=== PATIENT | female | born 1975 | race Caucasian/White ===

== ENCOUNTER 2019-09-15 16:09 | Inpatient (IN) | payer OTHER ==
[~2019-09-15] VITALS: Ht 175.3 cm; Wt 62.4 kg
[2019-09-15] MEDS ORDERED: LORazepam 2 MG/ML, 1ML IVPush ONE (17:30)
[2019-09-15] MEDS ORDERED: ONDANSETRON 2MG/ML, 2ML IVPush ONE (17:30)
[2019-09-15 17:42] LABS: MEAN CORPUSCULAR HGB CONC 33.6 g/dL (32.4-35.8); MEAN CORPUSCULAR VOLUME 98.3 fL (80-100); MEAN PLATELET VOLUME 6.6 fL (7.4-10.4); PLATELET COUNT 216 x10^3/uL (130-400); RED CELL DISTRIBUTION WIDTH 15.1 % (9.6-15.2)
[2019-09-15] MEDS ORDERED: ONDANSETRON 2MG/ML, 2ML ONE (17:53)
[2019-09-15] MEDS ORDERED: LORazepam 2 MG/ML, 1ML ONE (17:53)
[2019-09-15 17:55] LABS: ALANINE AMINOTRANSFERASE 73 U/L (12-78); ALBUMIN 3.9 g/dL (3.4-5.0); ANION GAP 9 mmol/L (5-15); CALCIUM 7.7 mg/dL (8.5-10.1); CHLORIDE 102 mmol/L (98-107); CREATININE 0.74 mg/dL (0.55-1.02)
--- NOTE | 2019-09-15 17:58 | NUR ---
PT RESTING IN GURNEY WITH SEIZURE PRECAUTIONS IN PLACE, PT MEDICATED PER NOV. PT AOX4 BUT STILL TREMULOUS W/NYSTAGMUS, PERRL @5 - SLUGGISH. BAIN WITH GEN WEAKNESS.
[2019-09-15 17:59] LABS: MD YES
[2019-09-15 18:00] LABS: ALKALINE PHOSPHATASE 105 U/L (45-117); BILIRUBIN,TOTAL 0.9 mg/dL (0.2-1.0)
[2019-09-15 18:01] LABS: <PLATELET ESTIMATE> ADEQUATE; <PLT MORPHOLOGY> NORMAL PLT MORPH; <RBC MORPHOLOGY> NORMAL; BAND#(MANUAL) 0.48 x10^3/uL; BANDS%(MANUAL) 3 % (0-7); LYMPH#(MANUAL) 0.97 x10^3/uL (1-3.4); LYMPHS% (MANUAL) 6 % (22-44); MONOS#(MANUAL) 1.29 x10^3/uL (0.3-2.7); MONOS% (MANUAL) 8 % (2-9); SEG#(MANUAL) 13.36 x10^3/uL (1.8-6.8); SEGS% (MANUAL) 83 % (42-75)
[2019-09-15 18:02] LABS: MICROSCOPIC AUTO
[2019-09-15 18:03] LABS: SALICYLATE LEVEL < 1.7 mg/dL (2.8-20.0)
[2019-09-15 18:03] LABS: CULTURE INDICATED? NO
[2019-09-15 18:17] LABS: BENZODIAZEPINE SCREEN, URINE Positive (Negative); METHADONE SCREEN, URINE Negative (Negative)
[2019-09-15 18:21] LABS: AMPHETAMINE SCREEN, URINE Negative (Negative); BARBITURATE SCREEN, URINE Negative (Negative); CANNABINOID SCREEN, URINE Negative (Negative); COCAINE SCREEN, URINE Negative (Negative); OPIATE SCREEN, URINE Negative (Negative)
--- NOTE | 2019-09-15 18:30 | NUR ---
PT TO CT, NOTIFIED OF CONTINUED TREMORS AND EPISODE OF INCONTINENCE.
--- NOTE | 2019-09-15 18:45 | NUR ---
SPOKE WITH PTS EX AND FRIEND SAMANTHA MENJIVAR [phone]. PT DISCHARGED FROM REHAB ABOUT A MONTH AGO. HAS NOT BEEN SOBER SINCE. PER FRIEND HAS BEEN RUNNING AROUND WITHOUT CLOTHES ON AND VERY SEXUALLY PERMISCUIOUS SLEEPING WITH CAB DRIVERS AND RANDOM PERSONS. HAS BEEN DRINKING HEAVILY AND POSSIBLY DOING DRUGS ALTHOUGH UDS FOR US IS NEGATIVE. FAMILY STATES THEY DO NOT KNOW WHY PT IS TAKING ANTIPSYCHOTICS AND HAS NO PSYCH HX. PER FAMILY BOTTLE OF SLEEP AID "WALL SLEEP Z" FULL SUNDAY NOW EMPTY - RISPERDONE - CAN'T FIND BOTTLE, TRANTELLIX - SPILLED, XANAX - 1 BOTTLE HAS 10 OF 0.5MG, OTHER BOTTLE EMPTY. NOTIFIED.
--- NOTE | 2019-09-15 18:55 | NUR ---
ASSUMING CARE OF PT AT THIS TIME. PT RESTING IN BED, NADN. TACHY HR, RAPID BREATHING. ALL RESULTS BACK AT THIS TIME, CHART UP FOR RECHECK
--- NOTE | 2019-09-15 20:03 | NUR ---
DR WILSON AT BEDSIDE TO RECHECK PT AND PLACE ADMIT ORDERS
[2019-09-15] MEDS ORDERED: SODIUM CHLORIDE 0.9% 1,000 ML IV ONE (20:26)
[2019-09-15] MEDS ORDERED: SODIUM CHLORIDE FLUSH 10ML SYR IVF PRN (20:30)
--- NOTE | 2019-09-15 20:34 | NUR ---
DR KNOWLES TO BEDSIDE FOR ADMIT ASSESSMENT
[2019-09-15] MEDS ORDERED: ACETAMINOPHEN 325 MG TABLET PO PRN (21:00)
[2019-09-15] MEDS ORDERED: SODIUM BICARB 8.4%, 50ML SYRINGE IVPush ONE (21:00)
[2019-09-15] MEDS ORDERED: SODIUM BICARBONATE 1 MEQ/ML, 50ML VIAL IVPush ONE (21:00)
[2019-09-15] MEDS ORDERED: SODIUM CHLORIDE 0.9% 1,000ML IVBOLUS ONE (21:00)
[2019-09-15] MEDS ORDERED: ONDANSETRON 2MG/ML, 2ML IVPush PRN (21:00)
[2019-09-15] MEDS ORDERED: SODIUM BICARBONATE 1 MEQ/ML, 50ML VIAL ONE (21:24)
--- NOTE | 2019-09-15 21:34 | NUR ---
REPORT GIVEN TO ERICA RN, PT READY FOR TRANSPORT
[2019-09-15 21:57] VITALS: BP 139/97
[2019-09-16 02:15] VITALS: BP 142/98
[2019-09-16 05:26] LABS: MEAN CORPUSCULAR HEMOGLOBIN 33.9 pg (27.0-34.8); MEAN CORPUSCULAR HGB CONC 34.7 g/dL (32.4-35.8); MEAN CORPUSCULAR VOLUME 97.6 fL (80-100); MEAN PLATELET VOLUME 7.2 fL (7.4-10.4); PLATELET COUNT 199 x10^3/uL (130-400); RED BLOOD COUNT 3.46 x10^6/uL (3.82-5.3)
[2019-09-16 05:28] LABS: ANION GAP 7 mmol/L (5-15); CALCIUM 7.8 mg/dL (8.5-10.1); CHLORIDE 104 mmol/L (98-107)
[2019-09-16 05:59] LABS: BASOPHILS # (AUTO) 0.02 x10^3/uL (0-0.1); BASOPHILS % (AUTO) 0 % (0-1); EOSINOPHILS # (AUTO) 0.01 x10^3/uL (0-0.4); EOSINOPHILS % (AUTO) 0 % (1-7); LYMPHOCYTES % (AUTO) 16 % (22-44); MD SCAN; MONOCYTES # (AUTO) 1.02 x10^3/uL (0.2-0.8); MONOCYTES % (AUTO) 10 % (2-9); NEUTROPHILS # (AUTO) 7.66 x10^3/uL (1.8-6.8); NEUTROPHILS % (AUTO) 74 % (42-75)
[2019-09-16 06:02] LABS: CREATININE 0.76 mg/dL (0.55-1.02)
[2019-09-16 07:12] LABS: CREATINE KINASE, TOTAL 35528 U/L (26-192)
[2019-09-16 07:51] VITALS: BP 134/81
[2019-09-16] MEDS: SODIUM CHLORIDE 0.9% 1,000 ML IV SCH ×2 (12:04→19:55)
[2019-09-16 13:38] VITALS: BP 122/78
[2019-09-16] MEDS ORDERED: POTASSIUM CHLORIDE 20 MEQ TAB.ER.PRT PO ONE (18:30)
[2019-09-16 19:34] VITALS: BP 119/82
[2019-09-17 01:02] VITALS: BP 113/75
[2019-09-17] MEDS: SODIUM CHLORIDE 0.9% 1,000 ML IV SCH (05:09)
[2019-09-17 05:51] LABS: BASOPHILS # (AUTO) 0.02 x10^3/uL (0-0.1); BASOPHILS % (AUTO) 0 % (0-1); EOSINOPHILS # (AUTO) 0.07 x10^3/uL (0-0.4); EOSINOPHILS % (AUTO) 1 % (1-7); LYMPHOCYTES # (AUTO) 1.79 x10^3/uL (1-3.4); LYMPHOCYTES % (AUTO) 23 % (22-44); MD NO; MEAN CORPUSCULAR HEMOGLOBIN 33.5 pg (27.0-34.8); MEAN CORPUSCULAR HGB CONC 33.6 g/dL (32.4-35.8); MEAN CORPUSCULAR VOLUME 99.6 fL (80-100); MEAN PLATELET VOLUME 6.7 fL (7.4-10.4); MONOCYTES # (AUTO) 0.87 x10^3/uL (0.2-0.8); MONOCYTES % (AUTO) 11 % (2-9); NEUTROPHILS % (AUTO) 65 % (42-75); PLATELET COUNT 246 x10^3/uL (130-400)
[2019-09-17 05:57] LABS: ALBUMIN 3.3 g/dL (3.4-5.0); ANION GAP 5 mmol/L (5-15); CALCIUM 7.6 mg/dL (8.5-10.1); CHLORIDE 107 mmol/L (98-107)
[2019-09-17 06:24] LABS: ALANINE AMINOTRANSFERASE 131 U/L (12-78); ALKALINE PHOSPHATASE 94 U/L (45-117); BILIRUBIN,TOTAL 1.1 mg/dL (0.2-1.0); CREATININE 0.72 mg/dL (0.55-1.02); TOTAL PROTEIN 6.2 g/dL (6.4-8.2)
[2019-09-17 06:56] LABS: CREATINE KINASE, TOTAL 16595 U/L (26-192)
[2019-09-17 07:15] VITALS: BP 147/88
== END 2019-09-17 07:34 | disposition left against medical advice (07) | DRG 918 ==
LOC: ED 20:50 → EDIP 21:01 → 5SO 21:46 → 4EST 09-16 21:30
PROVIDERS: ADMIT Internal Medicine; ATTEND Internal Medicine
DX: T44.3X1A Poisoning by other parasympatholytics [anticholinergics and antimuscarinics] and spasmolytics, accidental (unintentional), initial encounter (principal); M62.82 Rhabdomyolysis; T45.0X1A Poisoning by antiallergic and antiemetic drugs, accidental (unintentional), initial encounter; E87.6 Hypokalemia; F41.9 Anxiety disorder, unspecified; G47.00 Insomnia, unspecified; R56.9 Unspecified convulsions; F10.20 Alcohol dependence, uncomplicated; H57.04 Mydriasis; Z98.82 Breast implant status; Z90.710 Acquired absence of both cervix and uterus; Y92.89 Other specified places as the place of occurrence of the external cause
CPT/HCPCS: 36415; 70450; 71045; 80048; 80053; 80307; 81001; 82550; 83735; 84100; 84443; 84703; 85025; 93005; 99291; G0378; J2405; J2060; J7030

== ENCOUNTER 2020-11-21 13:06 | Emergency (ER) | payer SELFPAY ==
[~2020-11-21] VITALS: Ht 172.7 cm; Wt 62.6 kg
--- NOTE | 2020-11-21 13:41 | NUR ---
Pt ambulatory to room from triage without gait disturbance noted and dry heaving into emesis bag as she is walking. Pt changed into gown, placed on bedside monitor, and field tax auditor completed.
--- NOTE | 2020-11-21 13:55 | NUR ---
IV started and labs drawn in anticipation of need for IV meds/fluids after MD exam. Pt also notified of likely needed UA sample when able. Awaiting MD.
--- NOTE | 2020-11-21 14:45 | NUR ---
No MD yet. ER physicians notified of needed MD exam and orders in core ED area with response received.
--- NOTE | 2020-11-21 15:10 | NUR ---
MD at bedside for exam. Awaiting order placement.
--- NOTE | 2020-11-21 15:14 | NUR ---
Pt dry heaving with continued severe abd pain at this time. No orders present as yet.
[2020-11-21] MEDS ORDERED: HALOPERIDOL 5 MG/ML ONE (15:42)
[2020-11-21] MEDS ORDERED: MORPHINE SULFATE 4 MG/ML, 1ML ONE (15:43)
[2020-11-21] MEDS ORDERED: ONDANSETRON 2MG/ML, 2ML ONE (15:43)
--- NOTE | 2020-11-21 15:53 | NUR ---
Medications and IVF given as ordered.
[2020-11-21 16:00] LABS: BASOPHILS % (AUTO) 1 % (0-1); EOSINOPHILS % (AUTO) 0 % (1-7); LYMPHOCYTES % (AUTO) 15 % (22-44); MEAN CORPUSCULAR HGB CONC 34.6 g/dL (32.4-35.8); MEAN PLATELET VOLUME 8.1 fL (7.4-10.4); MONOCYTES % (AUTO) 16 % (2-9); NEUTROPHILS % (AUTO) 68 % (42-75); PLATELET COUNT 306 x10^3/uL (130-400); RED BLOOD COUNT 4.18 x10^6/uL (3.82-5.3); RED CELL DISTRIBUTION WIDTH 13.4 % (9.6-15.2)
[2020-11-21] MEDS ORDERED: ONDANSETRON 2MG/ML, 2ML IVPush ONE (16:00)
[2020-11-21] MEDS ORDERED: SODIUM CHLORIDE FLUSH 10ML SYR IVF ONE (16:00)
[2020-11-21] MEDS ORDERED: SODIUM CHLORIDE 0.9% 1,000 ML IV ONE (16:00)
[2020-11-21] MEDS ORDERED: SODIUM CHLORIDE 0.9% 1,000ML IVBOLUS ONE (16:00)
[2020-11-21] MEDS ORDERED: MORPHINE SULFATE 4 MG/ML, 1ML IVPush PRN (16:00)
[2020-11-21] MEDS ORDERED: HALOPERIDOL 5 MG/ML IV ONE (16:00)
[2020-11-21 16:02] LABS: ALBUMIN 4.3 g/dL (3.4-5.0); ANION GAP 12 mmol/L (5-15); CALCIUM 8.8 mg/dL (8.5-10.1); CHLORIDE 102 mmol/L (98-107)
[2020-11-21 16:05] LABS: ALANINE AMINOTRANSFERASE 97 U/L (12-78); ALKALINE PHOSPHATASE 82 U/L (45-117); BILIRUBIN,TOTAL 0.9 mg/dL (0.2-1.0); CREATININE 0.69 mg/dL (0.55-1.02)
[2020-11-21 16:22] LABS: MD SCAN
--- NOTE | 2020-11-21 16:40 | NUR ---
Pt states pain has decreased to 4/10 from 10/10 and nausea is resolved. Fluids completed and site saline locked. Pt up for d/c to home and calling her friend to come get her.
[2020-11-21 17:06] VITALS: BP 127/73
== END 2020-11-21 17:09 | disposition home or self-care (01) ==
LOC: ED 17:00
DX: R11.2 Nausea with vomiting, unspecified (principal); R10.9 Unspecified abdominal pain; Z90.710 Acquired absence of both cervix and uterus; Z98.51 Tubal ligation status
CPT/HCPCS: 36415; 80053; 83690; 85025; 96361; 96374; 96375; 99284; J1630; J2270; J2405; J7030